=== PATIENT | female | born 1980 | race African-American/Black ===

== ENCOUNTER 2025-10-06 17:37 | Inpatient (IN) | payer OTHER ==
[~2025-10-06] VITALS: Ht 157.5 cm; Wt 120.7 kg
[2025-10-06 17:58] VITALS: O2SAT 98
[2025-10-06 18:34] LABS: BASOPHILS % 0.4 % (0.0-2.0); EOSINOPHILS % 0.5 % (0.0-5.0); HEMATOCRIT. 39.9 % (36.0-48.0); HEMOGLOBIN. 12.9 g/dL (12.0-16.0); LYMPHOCYTES % 13.3 % (20.0-50.0); MEAN PLATELET VOLUME 8.9 fl (7.4-10.4); MONOCYTES % 10.2 % (2.0-8.0); NEUTROPHILS % 75.6 % (40.0-76.0); PLATELET 159 x1000/uL (130-400); RED BLOOD CELL COUNT 4.56 mill/uL (4.2-5.4); RED CELL DISTRIBUTION WIDTH 14.0 % (11.6-14.6)
[2025-10-06] MEDS: SODIUM CHLORIDE 0.9% 1,000 ML IV ONE (18:49)
[2025-10-06 18:56] LABS: CREATININE 0.9 mg/dL (0.6-1.0); UREA NITROGEN BLOOD 7 mg/dL (9-23)
[2025-10-06 18:57] LABS: ETHANOL BLOOD < 10 mg/dL (<10); PROTEIN TOTAL 7.3 g/dL (6.0-8.3)
[2025-10-06 18:58] LABS: ASPARTATE AMINOTRANSFERASE 25 IU/L (<34); BILIRUBIN DIRECT < 0.1 mg/dL (<=3.0)
[2025-10-06 18:59] LABS: BILIRUBIN TOTAL 0.3 mg/dL (0.1-1.0)
[2025-10-06 19:24] LABS: HCG SCREEN NEGATIVE
[2025-10-06 19:36] LABS: TROPONIN I HIGH SENSITIVITY 251 ng/L (3.0-34)
[2025-10-06 20:56] LABS: TROPONIN I HIGH SENSITIVITY 505 ng/L (3.0-34)
[2025-10-06 22:36] LABS: COLOR URINE YELLOW (YELLOW); GLUCOSE URINE NEGATIVE (NEGATIVE); KETONES URINE NEGATIVE (NEGATIVE); LEUKOCYTE ESTERASE URINE NEGATIVE (NEGATIVE); NITRITE URINE NEGATIVE (NEGATIVE); OCCULT BLOOD URINE 2+ (NEGATIVE); PH URINE 5.5 (4.5-8.0); PROTEIN URINE TRACE (NEGATIVE); SPECIFIC GRAVITY URINE 1.011 (1.005-1.030); UROBILINOGEN URINE 0.2 E.U./dL (0.2-1.0)
[2025-10-06 23:04] LABS: BACTERIA URINE TRACE; SQUAMOUS EPITHELIAL CELL URINE 1+ /lpf (RARE/1+)
[2025-10-06 23:06] LABS: CLARITY URINE SL HAZY (CLEAR)
[2025-10-06] MEDS ORDERED: DEXTROSE 50% WATER 50ML SYRINGE IV PRN (23:45)
[2025-10-06] MEDS ORDERED: DOCUSATE SODIUM 100MG CAPSULE PO PRN (23:45)
[2025-10-06] MEDS ORDERED: ONDANSETRON HCL 4MG/2ML INJ IV PRN (23:45)
[2025-10-06] MEDS ORDERED: ACETAMINOPHEN 325MG TABLET PO PRN (23:45)
[2025-10-06] MEDS ORDERED: IPRATROPIUM/ALBUTEROL 0.5-3(2.5)MG/3ML NEB HHN PRN (23:45)
[2025-10-06] MEDS ORDERED: GUAIFENESIN 200MG/10ML SUGAR FREE UDC PO PRN (23:45)
[2025-10-07] VITALS (10 sets, daily range): BP systolic 122–166; BP diastolic 81–95; PULSE 72–90; RESP 16–20; TEMP 36.2–36.6; O2SAT 93–100
[2025-10-07] MEDS: SODIUM CHLORIDE 0.9% 1,000 ML IV SCH (00:14)
[2025-10-07] MEDS: PANTOPRAZOLE 40MG DR TABLET PO SCH (00:14)
[2025-10-07] MEDS ORDERED: IOHEXOL-350 50 ML BOTTLE ONE (02:18)
[2025-10-07] MEDS ORDERED: IOHEXOL-350 100 ML BOTTLE ONE (02:18)
[2025-10-07] MEDS ORDERED: HEPARIN BOLUS PRN aPTT <36 IV (02:45)
[2025-10-07] MEDS ORDERED: HEPARIN BOLUS PRN aPTT 37-44 IV (02:45)
[2025-10-07 03:00] LABS: PHOSPHORUS 2.7 mg/dL (2.5-4.9)
[2025-10-07] MEDS: HEPARIN 80 UNITS/KG BOLUS IV NR (03:01)
[2025-10-07 03:04] LABS: VITAMIN B12 SERUM 582 pg/mL (211-911)
[2025-10-07 03:08] LABS: INR 1.0
[2025-10-07] MEDS: HEPARIN 25,000 UNITS PREMIX 250 ML IV SCH (03:22)
[2025-10-07] MEDS: MAGNESIUM 2 G PREMIX 50 ML IV NR (06:25)
[2025-10-07] MEDS ORDERED: HYDRALAZINE HCL 10MG TABLET PO PRN (07:45)
[2025-10-07] MEDS: INSULIN LISPRO 100 UNITS/ML SUBCUT SCH (08:00)
[2025-10-07] MEDS: BLOOD SUGAR DIAGNOSTIC STRIP TEST SCH (08:19)
[2025-10-07] MEDS: ASPIRIN 81MG EC TABLET PO SCH (08:20)
[2025-10-07] MEDS ORDERED: ENOXAPARIN 40MG/0.4ML SYR SUBCUT SCH (09:00)
[2025-10-07 10:38] LABS: BASOPHILS % 0.2 % (0.0-2.0); EOSINOPHILS % 0.6 % (0.0-5.0); HEMATOCRIT. 36.5 % (36.0-48.0); HEMOGLOBIN. 11.9 g/dL (12.0-16.0); LYMPHOCYTES % 26.4 % (20.0-50.0); MEAN PLATELET VOLUME 9.0 fl (7.4-10.4); MONOCYTES % 11.7 % (2.0-8.0); NEUTROPHILS % 61.1 % (40.0-76.0); PLATELET 143 x1000/uL (130-400); RED BLOOD CELL COUNT 4.21 mill/uL (4.2-5.4); RED CELL DISTRIBUTION WIDTH 13.9 % (11.6-14.6)
[2025-10-07 10:53] LABS: CREATININE 0.8 mg/dL (0.6-1.0)
[2025-10-07 10:54] LABS: TRIGLYCERIDE 89 mg/dL (0-150); UREA NITROGEN BLOOD < 5 mg/dL (9-23)
[2025-10-07 10:55] LABS: LDL CHOLESTEROL 86 mg/dL (5-100)
[2025-10-07 10:59] LABS: T4 FREE 1.14 ng/dL (0.89-1.76)
[2025-10-07 11:07] LABS: TROPONIN I HIGH SENSITIVITY 665 ng/L (3.0-34)
[2025-10-07 13:29] LABS: INFLUENZA TYPE A Presumptive Negative (Pres. Neg.); INFLUENZA TYPE B Presumptive Negative (Pres. Neg.); RESPIRATORY SYNCYTIAL VIRUS Not Detected (Not Detectd)
[2025-10-07 17:49] LABS: TROPONIN I HIGH SENSITIVITY 412 ng/L (3.0-34)
[2025-10-07] MEDS ORDERED: MIDAZOLAM HCL 2 MG/2 ML VIAL ONE ×2 (17:53→18:59)
[2025-10-07] MEDS ORDERED: FENTANYL CITRATE/PF 50MCG/ML 2ML VIAL ONE ×2 (17:53→18:59)
[2025-10-07] MEDS ORDERED: IODIXANOL 320MG/ML 100 ML BOTTLE IV ONE (17:54)
[2025-10-07] MEDS ORDERED: HEPARIN 1000 UNITS/ML 10ML ONE ×2 (17:54→19:32)
[2025-10-07] MEDS ORDERED: LIDOCAINE HCL 1% 20ML VIAL ONE (18:29)
[2025-10-07] MEDS ORDERED: ATROPINE SULFATE 1MG/10ML SYR IV PRN (19:00)
[2025-10-07] MEDS ORDERED: IODIXANOL 320 MG/ML 150ML BOTTLE IV ONE (19:14)
[2025-10-07] MEDS: ATORVASTATIN CALCIUM 40MG TABLET PO SCH (21:20)
[2025-10-08] VITALS (11 sets, daily range): BP systolic 103–153; BP diastolic 58–88; PULSE 67–85; RESP 15–26; TEMP 36.6–37.2; O2SAT 97–99
[2025-10-08 00:47] LABS: *AMPHETAMINES SCREEN URINE NEGATIVE (NEGATIVE)
[2025-10-08 00:48] LABS: *BARBITURATES SCREEN URINE NEGATIVE (NEGATIVE); *BENZODIAZEPINES SCREEN URINE NEGATIVE (NEGATIVE); *COCAINE SCREEN URINE NEGATIVE (NEGATIVE); CANNABINOID URINE SCREEN NEGATIVE (NEGATIVE); METHADONE URINE SCREEN NEGATIVE (NEGATIVE); OPIATES URINE SCREEN NEGATIVE (NEGATIVE); PHENCYCLIDINE URINE SCREEN NEGATIVE (NEGATIVE)
[2025-10-08 00:49] LABS: ECSTASY MDMA SCREEN URINE NEGATIVE (NEGATIVE)
[2025-10-08 01:00] LABS: TROPONIN I HIGH SENSITIVITY 267 ng/L (3.0-34)
[2025-10-08 04:45] LABS: CREATININE 0.6 mg/dL (0.6-1.0)
[2025-10-08 04:46] LABS: UREA NITROGEN BLOOD < 5 mg/dL (9-23)
[2025-10-08 04:48] LABS: PHOSPHORUS 2.8 mg/dL (2.5-4.9)
[2025-10-08 05:00] LABS: BASOPHILS % 0.2 % (0.0-2.0); EOSINOPHILS % 1.0 % (0.0-5.0); HEMATOCRIT. 34.5 % (36.0-48.0); HEMOGLOBIN. 11.2 g/dL (12.0-16.0); LYMPHOCYTES % 24.1 % (20.0-50.0); MEAN PLATELET VOLUME 9.1 fl (7.4-10.4); MONOCYTES % 8.8 % (2.0-8.0); NEUTROPHILS % 65.9 % (40.0-76.0); PLATELET 136 x1000/uL (130-400); RED BLOOD CELL COUNT 3.95 mill/uL (4.2-5.4); RED CELL DISTRIBUTION WIDTH 14.1 % (11.6-14.6)
[2025-10-08] MEDS ORDERED: HEPARIN BOLUS PRN aPTT <36 IV (05:26)
[2025-10-08] MEDS ORDERED: HEPARIN BOLUS PRN aPTT 37-44 IV (05:27)
[2025-10-08] MEDS: ACETAMINOPHEN 325MG TABLET PO PRN (09:46)
[2025-10-08] MEDS: MAGNESIUM 4 G PREMIX 100 ML IV NR (11:42)
[2025-10-08] MEDS: LIDOCAINE 5% PATCH TOP SCH (11:42)
[2025-10-08] MEDS: ENOXAPARIN 120MG/0.8ML SYR SUBCUT SCH (13:09)
[2025-10-08] MEDS ORDERED: ASPI-1406 PO (15:33)
[2025-10-08] MEDS ORDERED: APIX5TAB PO (15:33)
[2025-10-08] MEDS ORDERED: DOCU-422 PO (15:33)
[2025-10-08] MEDS ORDERED: APIX5TAB MT (15:33)
[2025-10-08] MEDS ORDERED: LIP40 PO (15:33)
[2025-10-08] MEDS ORDERED: ASPI-1406 MT (17:56)
[2025-10-08] MEDS ORDERED: ATOR40TA70 MT (17:56)
== END 2025-10-08 19:30 | disposition home or self-care (01) | DRG 163 ==
LOC: ER 17:37 → EDBEDREQ 21:52 → EDBEDREQTM 21:52 → ENRESERV 22:02 → 7WST 22:36 → 5EST 10-07 06:15
PROVIDERS: ADMIT Internal Medicine; ATTEND Internal Medicine
PROC: 02CQ3ZZ Extirpation of Matter from Right Pulmonary Artery, Percutaneous Approach (ICD-10-PCS; principal; 2025-10-07)
PROC: 02CR3ZZ Extirpation of Matter from Left Pulmonary Artery, Percutaneous Approach (ICD-10-PCS; 2025-10-07)
PROC: 4A023N6 Measurement of Cardiac Sampling and Pressure, Right Heart, Percutaneous Approach (ICD-10-PCS; 2025-10-07)
PROC: B211YZZ Fluoroscopy of Multiple Coronary Arteries using Other Contrast (ICD-10-PCS; 2025-10-07)
PROC: B31TYZZ Fluoroscopy of Left Pulmonary Artery using Other Contrast (ICD-10-PCS; 2025-10-07)
PROC: B31SYZZ Fluoroscopy of Right Pulmonary Artery using Other Contrast (ICD-10-PCS; 2025-10-07)
PROC: B519YZZ Fluoroscopy of Inferior Vena Cava using Other Contrast (ICD-10-PCS; 2025-10-07)
PROC: B51FYZZ Fluoroscopy of Right Pelvic (Iliac) Veins using Other Contrast (ICD-10-PCS; 2025-10-07)
PROC: B51BYZZ Fluoroscopy of Right Lower Extremity Veins using Other Contrast (ICD-10-PCS; 2025-10-07)
DX: I26.09 Other pulmonary embolism with acute cor pulmonale (principal); I21.4 Non-ST elevation (NSTEMI) myocardial infarction; Z79.01 Long term (current) use of anticoagulants; E04.2 Nontoxic multinodular goiter; E66.9 Obesity, unspecified; I10 Essential (primary) hypertension; E11.65 Type 2 diabetes mellitus with hyperglycemia; D64.9 Anemia, unspecified; Z68.42 Body mass index [BMI] 45.0-49.9, adult; E05.90 Thyrotoxicosis, unspecified without thyrotoxic crisis or storm; E83.42 Hypomagnesemia; Z79.82 Long term (current) use of aspirin
CPT/HCPCS: 36415; 37184; 37185; 71045; 71275; 75743; 75820; 75825; 80048; 80061; 80076; 80305; 80320; 81003; 82607; 82962; 83036; 83605; 83735; 84100; 84145; 84439; 84443; 84484; 84703; 85025; 85347; 86850; 86900; 87070; 87420; 87804; 93005; 93306; 93970; 96360; 99291; A4606; A4615; C1769; C1887; C1893; J1644; J1650; J2003; J2250; J3010; J3475; J7030; Q9967; C1894; G0480